=== PATIENT | male | born 1945 | race Caucasian/White ===

== ENCOUNTER 2016-11-30 08:05 | Inpatient (IN) | payer MEDICARE, BC ==
[2016-11-27 20:08] LABS: HEMATOCRIT 47.9 % (40.0-51.0); HEMOGLOBIN 16.3 g/dL (13.6-17.8)
[2016-11-27 20:12] LABS: BUN (BLOOD UREA NITROGEN) 20 MG/DL (6-23); CALCIUM, SERUM 9.8 MG/DL (8.5-10.4); CHLORIDE, SERUM 106 MMOL/L (96-112); CO2 (CARBON DIOXIDE) 27 MMOL/L (24-34); CREATININE 0.67 MG/DL (0.70-1.30); GFR AFRICAN AMERICAN 110 ML/MIN (>=60); GFR NON AFRICAN AMERICAN 95 ML/MIN (>=60); GLUCOSE, SERUM 120 MG/DL (60-99); POTASSIUM, SERUM 4.1 MMOL/L (3.5-5.3); SODIUM, SERUM 138 MMOL/L (135-148)
--- NOTE | ~2016-11-30 | CN ---
Consultation Report [facility] [address] [place]. [address] NAME: STUART DAVIS : 41 STATUS : ADM IN [facility]#: [id number] AGE: 71 ADM/REG DATE : 11/30/16 MR#: [id number] REPORT SERV DATE: 12/01/16 DICTATED BY: ISREAL RUBI JR. DATE: 12/01/16 REPORT STATUS : Draft TRANSCRIBED BY: MODGiacomo DATE: 12/01/16 CARDIOLOGY CONSULT DATE OF CONSULTATION: 12/01/2016 REASON FOR CONSULTATION: Paroxysmal atrial fibrillation, rapid ventricular response. HISTORY OF PRESENT ILLNESS: A 71-year-old white male, postop back surgery by Dr. Roberts, was found on the monitor today to be in atrial fibrillation with heart rate from 135 to 155. He was treated with p.o. Lopressor 25 mg for one dose. We are awaiting a transfer to a monitored floor. Limited therapeutic options are possible on this floor. Fortunately, he reports no symptoms with his atrial fibrillation. Specifically, he denies angina, shortness of breath, palpitations, dizziness, etc,. Vital signs are stable. The EKG obtained at 8:31 today shows new-onset atrial fibrillation with ventricular response of 135. Baseline artifact, nonspecific ST-T wave changes, no acute ST-segment changes. Isolated PVC versus aberrantly conducted beat. LABORATORY STUDIES: Unremarkable. ALLERGIES AND INTOLERANCES: Advil and ibuprofen allergy/intolerance. HOME MEDICATION LIST: Includes Voltaren, Neurontin, and Glucotrol. SOCIAL HISTORY: Nonsmoker and nondrinker. No illicit drugs. FAMILY HISTORY: Negative for premature coronary heart disease. PHYSICAL EXAMINATION: VITAL SIGNS: Blood pressure 129/75, pulse is 135 and irregularly irregular, respirations 18, afebrile. HEENT: No xanthelasma. NECK: No JVD at 30 degrees, no thyromegaly, no carotid bruit. LUNGS: Clear to auscultation and percussion. HEART: Irregular rhythm. No significant murmur, gallop, or rub. ABD: Soft, nontender, no hepatosplenomegaly, no mass. EXT: Without edema or pulse deficit. MS: Back without spine or costovertebral angle tenderness. NEURO: Symmetric findings. and irregularly irregular, respirations 18, afebrile. Respirations 18. IMPRESSION: New-onset paroxysmal atrial fibrillation this morning with rapid ventricular response with no cardiac symptoms. No previous cardiac history. Diabetic. Recovering from Consultation Report [facility] [address] [place]. [address] NAME: STUART DAVIS : 41 STATUS : ADM IN PAT#: [id number] AGE: 71 ADM/REG DATE : 11/30/16 MR#: [id number] REPORT SERV DATE: 12/01/16 DICTATED BY: ISREAL RUBI JR. DATE: 12/01/16 REPORT STATUS : Draft TRANSCRIBED BY: TR DATE: 12/01/16 back surgery. He is currently not on the monitored floor. Limited options are available for immediate treatment. We will give 0.25 mg of IV digoxin for help in rate control, and continue the p.o. metoprolol at 25 mg b.i.d. until IV Cardizem drip can be started on the monitored floor. Propafenone can be given at 150 mg now and t.i.d. with parameters. Echocardiogram will be checked along with an EKG and laboratory studies in the morning. Thank you for this consultation. PRASAD/TR Isreal Rubi Jr., M.D. / [id number] CC: Bakari Mccormick M.D.
--- NOTE | ~2016-11-30 | PREOPHP ---
PreOp History and Physical [facility] [address] [place]. [address] NAME: STUART DAVIS : 41 STATUS : REG [facility] PAT#: [id number] AGE: 71 ADM/REG DATE : 11/30/16 MR#: [id number] REPORT SERV DATE: 11/30/16 DICTATED BY: SHAWN MICHELLE DATE: 11/30/16 REPORT STATUS : Draft TRANSCRIBED BY: TR DATE: 11/30/16 CHIEF COMPLAINT: Back pain. Bilateral leg pain, left greater than right. HISTORY OF PRESENT ILLNESS: A very pleasant 71-year-old gentleman who is having increasing amounts of severe back pain and bilateral leg pain, worse with standing and walking, better when sitting. Plain x-rays revealed a grade 1 spondylolisthesis at L4-5. He has some instability with flexion extension. The patient has had an MRI showing severe spinal stenosis at L4-5 including central canal lateral recess and foramen. Also in addition at L3 4, he does have some central canal and lateral recess stenosis. He has some moderate facet arthropathy at L2-3, but the spinal canal is 11 mm. The biggest problem by far is at the L4 5 level where there is only a spinal canal of about 4.5 mm. The patient has failed conservative care. He is brought to surgery for a left-sided L3-4 hemilaminotomy, foraminotomy, and bilateral decompression through a unilateral approach. The patient will also have a left and right L4-5 hemilaminectomy, foraminotomy, and facetectomy. He will have a Jean-Paul posterior column osteotomy and interbody cage insertion, posterolateral interbody fusion with local bone graft allograft and posterior percutaneous Voyager instrumentation. Prior to surgery, risks, benefits, alternatives, and expectations explained. Consent form has been signed. Today in the preop holding, the patient was identified. All questions were answered. The patient voiced understanding of the risks, willingness to accept those, and requested to proceed with surgery. PAST MEDICAL HISTORY: Includes diabetes mellitus type 2, osteoarthritis, peripheral neuropathy, and peripheral vascular disease. PAST SURGICAL HISTORY: Herniorrhaphy. CURRENT MEDICATIONS: Include Voltaren; gabapentin; glyburide; magnesium; potassium; and vitamin B12. ALLERGIES: ADVIL AND LYRICA. SOCIAL HISTORY: He is . Retired. Doxia-[id number]-[id number]. He is a former smoker, stopped many years ago. Does not use any alcohol. FAMILY HISTORY: His mother had arthritis and at age 84. He does not know his father's history. REVIEW OF SYSTEMS: Currently he denies chest pain, pressure, or shortness of breath. He has no recent change in bowel or bladder function. PHYSICAL EXAMINATION: GENERAL: He is 6 feet 1 inch. Weight 200 pounds. Alert, cooperative, well oriented. He ambulates independently. HEENT: Exam is grossly normal. PreOp History and Physical [address] [address] NAME: STUART DAVIS : 41 STATUS : REG [facility] PAT#: [id number] AGE: 71 ADM/REG DATE : 11/30/16 MR#: [id number] REPORT SERV DATE: 11/30/16 DICTATED BY: SHAWN MICHELLE DATE: 11/30/16 REPORT STATUS : Draft TRANSCRIBED BY: TR DATE: 11/30/16 LUNGS: Clear to auscultation. HEART: Rate is regular and rhythmic. ABDOMEN: Soft with good bowel sounds. No peritoneal signs are noted. SPINE: The spine itself has a slight deformity. He can palpate to step-off at his L4-5 because he has a thin body habitus. He can flex to 60 to 70 degrees but only extend to -10 degrees and he has a lot of pain that radiates down both buttocks and legs with extension. With coaxing, he can heel walk on the right; he cannot on the left. He can toe-walk bilateral. His motor strengths are normal except he has 4/5 tibialis anterior and 4- over 5 EHL on the left compared to the right. He does have some stocking-glove decreased sensation below the mid calves distally and bilaterally and he also has some decreased vibration in the feet. Patella and Achilles reflexes both absent, bilateral toes are downgoing. No ankle clonus is found. No evidence of myelopathy. Orthopedically, he has no pain with movement of the hips, knees, or ankles. Pulses are weak in the lower extremities but are present. He has no abnormal skin lesions. ASSESSMENT AND RECOMMENDATIONS: As listed above. CAMILLA/TR Shawn Michelle D.O. / [id number] CC: Bakari Mccormick M.D.
--- NOTE | ~2016-11-30 | OP ---
Record Of Operation [facility] [address] [place]. [address] NAME: STUART DAVIS : 41 STATUS : ADM IN [facility]#: [id number] AGE: 71 ADM/REG DATE : 11/30/16 MR#: [id number] REPORT SERV DATE: 11/30/16 DICTATED BY: SHAWN MICHELLE DATE: 11/30/16 REPORT STATUS : Draft TRANSCRIBED BY: MODL DATE: 11/30/16 DATE OF PROCEDURE: PREOPERATIVE DIAGNOSES: 1. Grade 1 spondylolisthesis, severe spinal stenosis, L4-5. 2. Spinal stenosis, L3-4. POSTOPERATIVE DIAGNOSES: 1. Grade 1 spondylolisthesis, severe spinal stenosis, L4-5. 2. Spinal stenosis, L3-4. PROCEDURE: 1. Microscopic navigation assisted surgery. 2. Left and right L4-5 hemilaminectomy, foraminotomy, facetectomy. 3. HHALL three-column osteotomy L5. 4. Transforaminal discectomy at L4-5. 5. Anterior interbody cage insertion, L4-5. 6. Posterolateral interbody fusion with local bone graft allograft. 7. Posterior percutaneous Voyager instrumentation at L4-5. 8. Left L3-4 hemilaminotomy, foraminotomy, bilateral decompression through unilateral approach. SURGEON: Shawn Michelle D.O. VARIOUS EXCEPTIONALITIES TEACHER: Judson Trevino. ANESTHESIA: General. BLOOD LOSS: 300 mL. INDICATIONS FOR SURGERY: Indications for surgery and risks were explained. They are listed in the last office note as well as the history and physical. See that for detail. OPERATION: Antibiotic prophylaxis given. Neurophysiology monitoring leads inserted. The patient brought to the operative suite. General anesthetic including endotracheal intubation was administered. Olivares catheter was placed with sterile technique. The patient was placed prone on a Maynor spine frame. Bony prominences were carefully padded. Thoracolumbar spine scrubbed with Hibiclens solution. DuraPrep was painted. Sterile drapes applied. A small stab wound was carried out in the right posterior superior iliac spine. A percutaneous pin with navigational frame attached was inserted at the PSIS. Intraoperative CT scan with O-arm obtained, CT information used to register the navigational system. With navigational assistance, I identified the L3-4 and L4-5. At L3-4, just left of midline, a 2 cm skin incision was carried out. A blunt navigated probe placed through the Record Of Operation [facility] [address] [place]. [address] NAME: STUART DAVIS : 41 STATUS : ADM IN PAT#: [id number] AGE: 71 ADM/REG DATE : 11/30/16 MR#: [id number] REPORT SERV DATE: 11/30/16 DICTATED BY: SHAWN MICHELLE DATE: 11/30/16 REPORT STATUS : Draft TRANSCRIBED BY: TR DATE: 11/30/16 fascia and muscle and docked over the interlaminar space. Muscle dilators were inserted followed by placement of a tubular retractor attached to an arm mount table. The microscope was sterilely draped and used throughout the remainder of the procedure. With Navigational assistance, I determined the amount of lamina of L3. I wanted to remove in order to reach the cephalad boundary of the disk space also determine the amount of medial facet joint to remove in order to reach the lateral aspect of the thecal sac. With a 3 mm katerin bur, I removed 60% of lamina of L3 approximately 20%-25% of the medial facet joint of L3-4 and I did this followed by removal of the hypertrophy ligamentum flavum which was definitely causing lateral recess stenosis. Central canal was moderately compressed. 2 mm and 3 mm Kerrison rongeurs were used to decompress lateral recess with the removal of the ligamentum flavum. I then worked across the posterior aspect of the thecal sac and I debrided the ligamentum flavum on the opposite side as well as remove the anterior cortical edge of the facet at the start of the lamina and decompressed all the way to the opposite lateral recess and foramen. The bilateral decompression through unilateral approach was accomplished. The wound was irrigated. The retractor was removed. Next, I moved to the right side and just lateral to the facet joint of L4-5. I carried out a 3 cm skin incision. A blunt navigated probe placed through the fascia muscle and docked over the facet joint. Muscle dilators were inserted followed by placement of a tubular retractor attached to an arm mount table. The microscope once again continued to be sterilely draped. With navigational assistance, I identified the top of the pedicle of L5 and the inferior pedicle of L4. I then worked from lateral to medial and removed the entire superior articular process of L5 down to the top of the pedicle. I removed the inferior articular process of L4, the lamina of L4, and the pars interarticularis of L4 using a combination of cutting burs, katerin burs, and 2 mm and 3 mm Kerrison rongeurs. In addition, the exiting nerve root was carefully protected. I then removed the posterior superior aspect of the pedicle and vertebral body for a width of approximately 15 mm. I took off approximately 3 mm to 4 mm at the top of the pedicle as well. This was a wedge-shaped osteotomy into the disk space involving all three columns to allow greater increase in lordosis. After the HHALL osteotomy, a transforaminal diskectomy was carried out with curettes, rongeurs, and disk blaise. The wound was irrigated. The retractor was removed. I then moved to the left side. On the left side, again a 3 cm skin incision was carried out just lateral to the facet joint. The tubular retractor was placed over the facet joint as previously noted and once again, I went through a microscopic navigation to assist the laminectomy, foraminotomy, facetectomy, and also carried out the 3-column HHALL osteotomy on the left just like that on the right. The transforaminal diskectomy completed on the left side and the wound was irrigated. The final step was intradiscal trial was carried out. We did not feel the interbody space with the local bone graft allograft and once the interbody space had been filled with graft, we inserted the cage through the graft material into the interbody space against the Record Of Operation [facility] [id number] [facility] [place]. [address] NAME: STUART DAVIS : 41 STATUS : ADM IN PAT#: [id number] AGE: 71 ADM/REG DATE : 11/30/16 MR#: [id number] REPORT SERV DATE: 11/30/16 DICTATED BY: SHAWN MICHELLE DATE: 11/30/16 REPORT STATUS : Draft TRANSCRIBED BY: TR DATE: 11/30/16 anterior longitudinal ligament. Some additional posterolateral interbody grafting was carried out after the cage was in place. We used copious amount of bone graft. Finally the retractors were removed. I used the previous two percutaneous incisions left and right side at L4-5 and I placed a border pedicle tap and screw garment manufacturer. We tapped the pedicles of L4 and 5, polyaxial Voyager screws with screw extenders were placed at L4-5 bilaterally. A 45 mm contoured lordotic capped leighann was then inserted through the top portion of the screw garment manufacturer, left and right side. The leighann reduced into the tulip of the set screws. The screw extenders were removed. The wounds irrigated and the fascia closed with interrupted #1 Vicryl suture. The subcutaneous tissue closed with 2-0 Vicryl suture, 2 0 vertical mattress, nylon suture used for skin closure. Sterile dressings applied. The patient returned to supine position, awakened, extubated, taken to recovery room in satisfactory condition having tolerated the procedure well. Sponge, needle, and instrument counts were correct. No intraoperative complications noted. CAMILLA/TR Shawn Michelle D.O. / [id number] CC: Bakari Mccormick M.D.
--- NOTE | ~2016-11-30 | DS ---
Discharge Summary [facility] [address] [place]. [address] NAME: STUART DAVIS : 41 STATUS : DIS IN PAT#: [id number] AGE: 71 ADM/REG DATE : 11/30/16 MR#: [id number] REPORT SERV DATE: 12/17/16 DICTATED BY: SHAWN MICHELLE DATE: 12/16/16 REPORT STATUS : Draft TRANSCRIBED BY: TR DATE: 12/16/16 Data Collection from hospitalization DISCHARGE DIAGNOSES: 1. Grade 1 spondylolisthesis, severe spinal stenosis, L4-5. 2. Spinal stenosis, L3-4. 3. Type 2 diabetes mellitus. 4. Osteoarthritis. 5. Peripheral neuropathy. 6. Peripheral vascular disease. 7. Former smoker. CONSULTATION: Dr. Uriel Rubi. PROCEDURES PERFORMED: Microscopic navigation-assisted surgery; left and right L4-5 hemilaminectomy, foraminotomy, and facetectomy; HHALL 3-column osteotomy L5; transforaminal diskectomy at L4-5; anterior interbody cage insertion at L4-5; posterolateral interbody fusion with local bone graft, allograft; posterior percutaneous Voyager instrumentation at L4-5; left L3-4 hemilaminotomy, foraminotomy, and bilateral decompression through unilateral approach, 11/30/2016. PATHOLOGY: Vertebral bone and soft tissue, lumbar spine-focal neovascularization (chronic reactive change). No crystals identified. MEDICATIONS: Vitamin D 5000 units on and Saturdays, Voltaren 75 mg daily, Neurontin 400 mg three times a day, Glucotrol 5 mg twice a day, Robaxin 500 mg every eight hours, Toprol-XL 25 mg daily, Roxicodone as instructed, Rythmol 150 mg twice a day. CONDITION AT DISCHARGE: Stable. DISPOSITION: The patient was discharged home on a low cholesterol, 2200 calorie diabetic diet with no concentrated carbohydrates and activities as instructed. He would follow up with Dr. Uriel Rubi, 12/23/2016. He would follow up with wa, 12/16/2016. He would follow up with his primary care provider as needed. HOSPITAL COURSE: This is a 71-year-old man, who had been having increasing amounts of severe back pain and bilateral leg pain that was worse with standing and walking and was better with sitting. Plain x-rays revealed grade 1 spondylolisthesis at L4-5. He had some instability with flexion and extension. MRI showed severe spinal stenosis at L4-5, including central canal, lateral recess, and foramen. Also in addition at L3-4, he had some central canal and lateral recess stenosis. He had some moderate facet arthropathy at L2-3, but the spinal canal was about 4.5 mm. The patient had failed conservative care. Treatment options were discussed and it was elected to proceed with surgical intervention. He was admitted to the hospital at this time for further evaluation and treatment. Upon admission, he was taken to the operating room, where he underwent the above-mentioned procedure. He tolerated this well and there were no complications. On postop day one, the patient had an elevated heart rate. The patient had new onset of atrial fibrillation with Discharge Summary [address] [place]. [address] NAME: STUART DAVIS : 41 STATUS : DIS IN PAT#: [id number] AGE: 71 ADM/REG DATE : 11/30/16 MR#: [id number] REPORT SERV DATE: 12/17/16 DICTATED BY: SHAWN MICHELLE DATE: 12/16/16 REPORT STATUS : Draft TRANSCRIBED BY: TR DATE: 12/16/16 rapid ventricular response. He denied any chest pain or shortness of breath at this time. He said he did feel hot. He denied any previous cardiac history or medications. He was seen in consultation by Dr. Uriel Rubi, regarding paroxysmal atrial fibrillation with rapid ventricular response. He had been treated with oral Lopressor for one day. He was going to be transferred to a monitored floor. The patient had no symptoms with his atrial fibrillation. IV digoxin was going to be given for help in rate control and we would continue oral metoprolol until IV Cardizem drip could be started on the monitored floor. Propafenone could be given with parameters. Echocardiogram was going to be checked along with an EKG and lab studies the following morning. On the , the patient converted from atrial fibrillation to a sinus rhythm. Metoprolol and propafenone would be continued at home. He had been placed on oral medications. Discharge planning was performed. On 12/03/2016, he had no complaints of leg pain. He was ambulating in the halls. Discharge instructions were given. Due to his improved and stable condition, he was discharged home with the above-stated instructions. Information collected by: Gabrielle Escobar I submit the above information as my discharge summary. CORRY/TR Shawn Michelle D.O. / [id number] CC: Bakari Mccormick M.D. James Hoback Jr., M.D.
[~2016-11-30 08:05] MED LIST: D 5000 PO; GLUCOTROL5 PO; NEUR400 PO; VOLT75 PO
[2016-11-30 16:17] LABS: BASOPHILS 0.3 %; BASOPHILS ABSOLUTE 0.03 10/3/uL (0.0-0.16); EOSINOPHILS 3.2 %; EOSINOPHILS ABSOLUTE 0.29 10/3/uL (0.0-0.53); HEMOGLOBIN 14.7 g/dL (13.6-17.8); IMMATURE GRANULOCYTES 0.7 %; IMMATURE GRANULOCYTES ABSOLUTE 0.06 10/3/uL (0.0-0.11); LYMPHOCYTES 39.2 %; LYMPHOCYTES ABSOLUTE 3.52 10/3/uL (0.67-4.30); MEAN CORPUS HGB CONC 34.9 g/dL (32.0-36.0); MEAN CORPUSCULAR HEMOGLOB 31.9 pg (26.0-34.0); MEAN CORPUSCULAR VOLUME 91.3 fL (80-100); MEAN PLATELET VOLUME 9.8 fL (9.2-13.0); MONOCYTES 9.8 %; MONOCYTES ABSOLUTE 0.88 10/3/uL (0.21-1.20); NEUTROPHILS 46.8 %; NEUTROPHILS ABSOLUTE 4.19 10/3/uL (2.02-8.40); PLATELET COUNT 150 10/3/uL (150-400); RBC DISTRIBUTION WIDTH 13.3 % (12.0-16.0); RED CELL COUNT 4.61 10/6/uL (4.7-6.1)
[2016-11-30 16:20] LABS: HEMATOCRIT 42.1 % (40.0-51.0); MANUAL DIFF NO %
[2016-11-30 16:25] LABS: BUN (BLOOD UREA NITROGEN) 18 MG/DL (6-23); CHLORIDE, SERUM 107 MMOL/L (96-112); CO2 (CARBON DIOXIDE) 26 MMOL/L (24-34); CREATININE 0.73 MG/DL (0.70-1.30); GFR AFRICAN AMERICAN 107 ML/MIN (>=60); GFR NON AFRICAN AMERICAN 92 ML/MIN (>=60); POTASSIUM, SERUM 3.6 MMOL/L (3.5-5.3); SODIUM, SERUM 140 MMOL/L (135-148)
[2016-11-30 16:26] LABS: GLUCOSE, SERUM 163 MG/DL (60-99)
[2016-12-01 04:42] LABS: BASOPHILS 0.1 %; BASOPHILS ABSOLUTE 0.01 10/3/uL (0.0-0.16); EOSINOPHILS 0.9 %; EOSINOPHILS ABSOLUTE 0.06 10/3/uL (0.0-0.53); HEMATOCRIT 42.2 % (40.0-51.0); HEMOGLOBIN 14.6 g/dL (13.6-17.8); IMMATURE GRANULOCYTES 0.3 %; IMMATURE GRANULOCYTES ABSOLUTE 0.02 10/3/uL (0.0-0.11); LYMPHOCYTES ABSOLUTE 1.07 10/3/uL (0.67-4.30); MANUAL DIFF NO %; MEAN CORPUS HGB CONC 34.6 g/dL (32.0-36.0); MEAN CORPUSCULAR HEMOGLOB 31.8 pg (26.0-34.0); MEAN CORPUSCULAR VOLUME 91.9 fL (80-100); MEAN PLATELET VOLUME 10.3 fL (9.2-13.0); MONOCYTES ABSOLUTE 0.94 10/3/uL (0.21-1.20); NEUTROPHILS 68.7 %; PLATELET COUNT 131 10/3/uL (150-400); RBC DISTRIBUTION WIDTH 12.9 % (12.0-16.0); RED CELL COUNT 4.59 10/6/uL (4.7-6.1); WHITE BLOOD CELLS 6.7 10/3/uL (4.5-10.5)
[2016-12-01 04:57] LABS: BUN (BLOOD UREA NITROGEN) 14 MG/DL (6-23); CALCIUM, SERUM 8.9 MG/DL (8.5-10.4); CHLORIDE, SERUM 103 MMOL/L (96-112); CO2 (CARBON DIOXIDE) 26 MMOL/L (24-34); CREATININE 0.79 MG/DL (0.70-1.30); GFR AFRICAN AMERICAN 103 ML/MIN (>=60); GFR NON AFRICAN AMERICAN 89 ML/MIN (>=60); GLUCOSE, SERUM 179 MG/DL (60-99); POTASSIUM, SERUM 3.9 MMOL/L (3.5-5.3); SODIUM, SERUM 136 MMOL/L (135-148)
[2016-12-02 06:14] LABS: BASOPHILS 0.1 %; BASOPHILS ABSOLUTE 0.01 10/3/uL (0.0-0.16); EOSINOPHILS 0 %; HEMATOCRIT 42.6 % (40.0-51.0); HEMOGLOBIN 15.1 g/dL (13.6-17.8); IMMATURE GRANULOCYTES 0.4 %; IMMATURE GRANULOCYTES ABSOLUTE 0.04 10/3/uL (0.0-0.11); LYMPHOCYTES ABSOLUTE 1.34 10/3/uL (0.67-4.30); MANUAL DIFF NO %; MEAN CORPUS HGB CONC 35.4 g/dL (32.0-36.0); MEAN CORPUSCULAR HEMOGLOB 32.2 pg (26.0-34.0); MEAN CORPUSCULAR VOLUME 90.8 fL (80-100); MEAN PLATELET VOLUME 10.8 fL (9.2-13.0); MONOCYTES 17.1 %; MONOCYTES ABSOLUTE 1.76 10/3/uL (0.21-1.20); NEUTROPHILS 69.4 %; NEUTROPHILS ABSOLUTE 7.12 10/3/uL (2.02-8.40); PLATELET COUNT 123 10/3/uL (150-400); RBC DISTRIBUTION WIDTH 12.8 % (12.0-16.0); RED CELL COUNT 4.69 10/6/uL (4.7-6.1); WHITE BLOOD CELLS 10.3 10/3/uL (4.5-10.5)
[2016-12-02 06:22] LABS: BUN (BLOOD UREA NITROGEN) 14 MG/DL (6-23); CALCIUM, SERUM 9.6 MG/DL (8.5-10.4); CHLORIDE, SERUM 103 MMOL/L (96-112); CO2 (CARBON DIOXIDE) 27 MMOL/L (24-34); CREATININE 0.65 MG/DL (0.70-1.30); GFR AFRICAN AMERICAN 112 ML/MIN (>=60); GFR NON AFRICAN AMERICAN 97 ML/MIN (>=60); GLUCOSE, SERUM 157 MG/DL (60-99); POTASSIUM, SERUM 3.7 MMOL/L (3.5-5.3); SODIUM, SERUM 137 MMOL/L (135-148)
[2016-12-03] MEDS ORDERED: OXYCOD (09:48)
[2016-12-03] MEDS ORDERED: RYTHMOL150 MG PO (09:49)
[2016-12-03] MEDS ORDERED: METHOC500B PO (09:49)
[2016-12-03] MEDS ORDERED: TOPXL25 PO (09:50)
== END 2016-12-03 14:04 | disposition home or self-care (01) | DRG 460 ==
LOC: SDC 08:05 → 3SO 17:13 → 1SO 12-01 10:35
PROVIDERS: Internal Medicine Cardiovascular Disease; Orthopaedic Surgery Orthopaedic Surgery of the Spine
PROC: 0SG00AJ Fusion of Lumbar Vertebral Joint with Interbody Fusion Device, Posterior Approach, Anterior Column, Open Approach (ICD-10-PCS; principal; 2016-11-30 09:30)
PROC: 0ST20ZZ Resection of Lumbar Vertebral Disc, Open Approach (ICD-10-PCS; 2016-11-30 09:30)
PROC: 0SG00K1 Fusion of Lumbar Vertebral Joint with Nonautologous Tissue Substitute, Posterior Approach, Posterior Column, Open Approach (ICD-10-PCS; 2016-11-30 09:30)
PROC: 4A11X4G Monitoring of Peripheral Nervous Electrical Activity, Intraoperative, External Approach (ICD-10-PCS; 2016-11-30 09:30)
DX: M48.06 Spinal stenosis, lumbar region (principal); G62.9 Polyneuropathy, unspecified; I48.0 Paroxysmal atrial fibrillation; E11.9 Type 2 diabetes mellitus without complications; I73.9 Peripheral vascular disease, unspecified; G89.29 Other chronic pain; Z88.6 Allergy status to analgesic agent; Z87.891 Personal history of nicotine dependence; Z79.899 Other long term (current) drug therapy; Z88.8 Allergy status to other drugs, medicaments and biological substances
CPT/HCPCS: 36415; 80048; 82962; 83735; 85014; 85018; 85025; 86850; 86900; 86901; 87641; 88304; 88311; 93005; 97116-GP; 97161-GP; A9270-GY; C1713; C8929; G8978-CL-GP; G8979-CJ-GP; J0690; J1160; J1644; J2250; J2274; J2405; J2710; J3010; J3480; Q9957